=== PATIENT | female | born 2005 | race Hispanic/Latino ===

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

== ENCOUNTER 2024-07-23 11:50 | Emergency (ER) | payer SELFPAY ==
[~2024-07-23] VITALS: Ht 157.5 cm; Wt 82.5 kg
[2024-07-23 12:38] VITALS: BP 118/71
[2024-07-23] MEDS ORDERED: LIDOcaine HCl 1% (Local Anesth.) 20 ML VIAL STI STA (12:43)
[2024-07-23] MEDS ORDERED: Diph, Acellular Pertussis, Tet 0.5 ML/VIAL (Tdap) SDV IM ONE (12:45)
[2024-07-23] MEDS ORDERED: POVIDONE IODINE 0.5 OZ/BTL TOP ONE (12:45)
[2024-07-23] MEDS ORDERED: NEOMYCIN-BACITRACIN-POLYMYXIN 0.5 GM/PAK PAK TOP ONE (12:45)
[2024-07-23 13:01] VITALS: BP 132/88
[2024-07-23 13:33] VITALS: BP 132/88
== END 2024-07-23 13:35 | disposition home or self-care (01) | DRG 605 ==
LOC: ED 11:50
PROC: 0HQGXZZ Repair Left Hand Skin, External Approach (ICD-10-PCS; principal; 2024-07-23)
DX: S61.213A Laceration without foreign body of left middle finger without damage to nail, initial encounter (principal); W26.0XXA Contact with knife, initial encounter; Y93.G1 Activity, food preparation and clean up; Y92.000 Kitchen of unspecified non-institutional (private) residence as the place of occurrence of the external cause
CPT/HCPCS: 90715